=== PATIENT | female | born 1960 | race Hispanic/Latino ===

== ENCOUNTER 2018-12-01 12:20 | Emergency (ER) | payer BC, OTHER ==
[2018-12-03] MEDS ORDERED: PRAV20TA4 PO (16:19)
[2018-12-03] MEDS ORDERED: METO25TA6 PO (16:19)
[2018-12-03] MEDS ORDERED: LISI40TA4 PO (16:19)
== END 2018-12-01 13:44 | disposition home or self-care (01) ==
LOC: EDH 12:20
DX: S82.842A Displaced bimalleolar fracture of left lower leg, initial encounter for closed fracture (principal); S80.212A Abrasion, left knee, initial encounter; I10 Essential (primary) hypertension; E78.5 Hyperlipidemia, unspecified; X50.1XXA Overexertion from prolonged static or awkward postures, initial encounter; Y93.89 Activity, other specified; Y92.488 Other paved roadways as the place of occurrence of the external cause; Y99.8 Other external cause status
CPT/HCPCS: 29515; 73610

== ENCOUNTER 2018-12-04 09:53 | Observation (INO) | payer BC ==
[2018-12-03 15:56] VITALS: BP 131/80
[2018-12-03 15:57] LABS: BASOPHILS % (AUTO) 0.8 % (0.0-5.0); EOSINOPHILS % (AUTO) 2.3 % (0.0-8.0); HEMATOCRIT 40.1 % (36-48); LYMPHOCYTES % (AUTO) 35.3 % (21.0-51.0); MEAN CORPUSCULAR HGB CONC 33.9 g/dL (32.0-36.0); MEAN CORPUSCULAR VOLUME 85.6 fL (79-99); MONOCYTES % (AUTO) 5.8 % (3.0-13.0); NEUTROPHILS % (AUTO) 55.8 % (40.0-77.0); PLATELET COUNT (AUTO) 225 K/uL (130-400); RED BLOOD CELL COUNT(AUTO) 4.68 MIL/uL (4.00-5.50); RED CELL DISTRIBUTION WIDTH 13.1 % (11.0-15.5); WHITE BLOOD COUNT (AUTO) 9.1 K/uL (4.8-10.8)
[2018-12-03 16:15] LABS: CREATININE 0.8 mg/dL (0.5-1.5); POTASSIUM 4.1 mmol/L (3.5-5.1)
[2018-12-04] VITALS (21 sets, daily range): BP systolic 115–145; BP diastolic 60–90
[~2018-12-04] VITALS: Ht 157.5 cm; Wt 81.6 kg
[2018-12-04] MEDS: CEFAZOLIN SODIUM 1 GM VIAL IVP SCH ×3 (06:00→21:40)
[~2018-12-04 09:53] MED LIST: LISI40TA4 PO; METO25TA6 PO; PRAV20TA4 PO
[2018-12-04] MEDS ORDERED: LACTATED RINGERS 1000ML 1,000 ML IV ONE (10:45)
[2018-12-04] MEDS ORDERED: GLYCOPYRROLATE 1 MG/5 ML SYRINGE ONE (13:31)
[2018-12-04] MEDS ORDERED: SUCCINYLCHOLINE 200MG/10ML SYR ONE (13:31)
[2018-12-04] MEDS ORDERED: MIDAZOLAM HCL 1 MG/ML 2ML VIAL ONE (13:31)
[2018-12-04] MEDS ORDERED: DEXAMETHASONE SOD PHOSPHATE 10MG/ML 1ML VIAL ONE (13:31)
[2018-12-04] MEDS ORDERED: LIDOCAINE PF 2% 5ML ABBOJECT ONE (13:31)
[2018-12-04] MEDS ORDERED: ONDANSETRON HCL 4 MG/2 ML VIAL ONE (13:32)
[2018-12-04] MEDS ORDERED: PROPOFOL 10 MG/ML 20ML VIAL IV ONE (13:32)
[2018-12-04] MEDS ORDERED: ROCURONIUM 10MG/1ML SYR 10 MG/ML ML ONE (13:32)
[2018-12-04] MEDS ORDERED: NEOSTIGMINE 5MG/5ML SYR IV ONE (13:32)
[2018-12-04] MEDS ORDERED: FENTANYL CITRATE PF 50 MCG/1 ML 2ML VIAL ONE ×2 (13:33→15:48)
[2018-12-04] MEDS ORDERED: ROPIVACAINE 0.5% 5MG/ML 30ML IJ ONE (13:37)
[2018-12-04] MEDS ORDERED: CEFAZOLIN SODIUM 1 GM VIAL ONE (14:13)
[2018-12-04] MEDS ORDERED: EPHEDRINE SULFATE 50 MG/ML AMPULE ONE (15:51)
[2018-12-04] MEDS: SODIUM CHLORIDE 0.9% 1000ML 1,000 ML IV SCH (16:51)
[2018-12-04] MEDS ORDERED: DIPHENHYDRAMINE HCL 25 MG CAPSULE PO PRN (17:00)
[2018-12-04] MEDS ORDERED: FERROUS FUMARATE 324 MG TABLET PO PRN (17:00)
[2018-12-04] MEDS ORDERED: DiphenhydrAMINE HCL 50 MG/ML VIAL IVP PRN (17:00)
[2018-12-04] MEDS ORDERED: HYDROCODONE/ACETAMINOPHEN 5/325 MG TAB PO PRN ×2 (17:00)
[2018-12-04] MEDS ORDERED: PROMETHAZINE HCL 25 MG/ML 1ML AMPULE IM PRN (17:00)
[2018-12-04] MEDS ORDERED: LIDOCAINE HCL-MPF 1% 2ML VIAL IVP PRN (17:00)
[2018-12-04] MEDS ORDERED: KETOROLAC TROMETHAMINE 15MG/ML IV PRN (17:00)
[2018-12-04] MEDS: ACETAMINOPHEN EXTRA STRENGTH 500 MG TABLET PO SCH (17:00)
[2018-12-04] MEDS ORDERED: POTASSIUM CHLORIDE 20MEQ/100ML 100 ML IV PRN ×2 (17:00→17:45)
[2018-12-04] MEDS ORDERED: POTASSIUM CHLORIDE 10% ELIXIR 20 MEQ/15 ML UDCUP PO PRN (17:00)
[2018-12-04] MEDS ORDERED: TEMAZEPAM 15 MG CAPSULE PO PRN (17:00)
[2018-12-04] MEDS ORDERED: POTASSIUM CHLORIDE 20 MEQ ERTAB PO PRN (17:00)
[2018-12-04] MEDS ORDERED: CALCIUM CARBONATE 500 MG TABLET PO PRN (17:00)
--- NOTE | 2018-12-04 19:35 | NUR ---
ALLERGY TO POTASSIUM AND DENTAL ANESTHESIA PATIENT DENIES HX OF ALLERGY TO POTASSIUM AND DENTAL ANESTHESIA. PATIENT STATES SHE SAW ALLERGY LISTED AT MD'S OFFICE AND FORGOT TO INFORM THEM ALLERGY IS NOT TRUE AND REPORTS HAVING NO MEMORY OF BEING ALLERGIC TO POTASSIUM OR DENTAL ANESTHESIA.
[2018-12-04] MEDS ORDERED: PHARMACY COMMUNICATION MISC SCH (19:45)
[2018-12-04] MEDS: METOPROLOL TARTRATE 25 MG TAB PO SCH (21:00)
[2018-12-04] MEDS ORDERED: ATORVASTATIN CALCIUM 10 MG TABLET PO SCH (21:00)
[2018-12-04] MEDS: FAMOTIDINE 20MG TAB 20 MG TAB PO SCH (21:40)
[2018-12-05] MEDS: ACETAMINOPHEN EXTRA STRENGTH 500 MG TABLET PO SCH ×2 (01:12→08:31)
[2018-12-05 03:45] VITALS: BP 120/69
[2018-12-05] MEDS: SODIUM CHLORIDE 0.9% 1000ML 1,000 ML IV SCH (04:18)
[2018-12-05] MEDS: CEFAZOLIN SODIUM 1 GM VIAL IVP SCH (04:18)
[2018-12-05] MEDS ORDERED: ASPI-1181 PO (04:28)
[2018-12-05 08:00] VITALS: BP 139/86
[2018-12-05] MEDS: FAMOTIDINE 20MG TAB 20 MG TAB PO SCH (08:26)
[2018-12-05] MEDS: METOPROLOL TARTRATE 25 MG TAB PO SCH (08:26)
[2018-12-05] MEDS ORDERED: ENOXAPARIN SODIUM 40 MG/0.4 ML SYRINGE SQ SCH (09:00)
[2018-12-05] MEDS ORDERED: LISINOPRIL 40 MG TABLET PO SCH (09:00)
[2018-12-05] MEDS ORDERED: POLYETHYLENE GLYCOL 3350 17 GM POWD.PACK PO SCH (09:00)
[2018-12-05] MEDS ORDERED: ASPI-1012 PO (10:01)
[2018-12-05] MEDS ORDERED: TYL3 PO (10:01)
[2018-12-05 11:56] VITALS: BP 121/72
--- NOTE | 2018-12-05 12:16 | NUR ---
D/C PLAN cm spoke to pt regarding d/c planning. Pt lives with spouse. States spouse assists in care as needed. Plan to home. Pt has been ambulating with crutches. Pt requesting walker. CM spoke to Dr. Vazquez and obtained order. CM explained to pt that benefits may not be able to be verified today so out of pocket cost cannot be determined at this time. Pt verbalized understanding and consented to referral. CM explained that DME may not be delivered over the weekend. States she can borrow walker for now and uses crutches. CM offered choices and obtained consent for [facility]ME. CM faxed referral and will f/u. CM also notified Matt with [facility]ME of referral and d/c today. Nursing updated. No other questions or concerns verbalized. Addendum: 12/05/18 at 1229 by BHAVANI HENRY Amended: Links added.
--- NOTE | 2018-12-05 14:44 | NUR ---
Discharge teaching completed in the room with pt and at side. Emphasis on dx, post-op instructions including Dr. Vazquez' orders for cast care, activity, as well as s/s to monitor for and when to seek emergency care vs dial 911. Pt is to follow up with Dr. Vazquez on 12/14, but understands she will need to call on next business day to schedule a time. Written rx for asa and tylenol #3 given to pt. Discussed purpose, route, frequency, and duration of treatment, as well as side effects and adverse effects. PIV removed, tip intact. Dressed with sterile 2x2 and band aid after hemostasis. Pt wheeled to [facility] for transport home via private car. Pt in stable condition at time of discharge. Pt accompanied by .
== END 2018-12-05 14:20 | disposition home or self-care (01) ==
LOC: DAH 09:53 → 4AH 09:54 → DAH 09:54
PROVIDERS: ADMIT Orthopaedic Surgery; ATTEND Orthopaedic Surgery
DX: S82.842A Displaced bimalleolar fracture of left lower leg, initial encounter for closed fracture (principal); X50.1XXA Overexertion from prolonged static or awkward postures, initial encounter; Y93.89 Activity, other specified; Y92.89 Other specified places as the place of occurrence of the external cause; Y99.8 Other external cause status
CPT/HCPCS: 27814; 36415; 73610; 80048; 85025; 96372; 96374; 96375; 96376; 97116 ×2; 97161; A4218; A4649 ×3; A4930 ×2; A6223; C1713 ×6; C1776; G0378 ×28; G8978; G8979; G8980; G8981; G8982; G8983; J0330; J0690 ×4; J1100; J1650; J1885; J2001; J2250; J2405; J2704; J2710; J2795; J3010 ×2; J3490 ×2; J7030; J7120 ×2; Q4051

== ENCOUNTER 2023-11-05 16:09 | Observation (INO) | payer BC, MEDICARE ==
[~2023-11-05] VITALS: Ht 157.5 cm; Wt 86.6 kg
[~2023-11-05 16:09] MED LIST changes: +ASPI-1012 PO; -LISI40TA4 PO; +LISI40TA9 PO; +TYL3 PO
[2023-11-05 17:00] VITALS: PULSE 74; RESP 21
[2023-11-05 17:10] VITALS: BP 94/39; PULSE 72; RESP 26
[2023-11-05 17:10] LABS: HEMATOCRIT 39.4 % (36-48); MEAN CORPUSCULAR HEMOGLOBIN 28.2 pg (27.0-33.0); MEAN CORPUSCULAR HGB CONC 33.2 g/dL (32.0-36.0); MEAN CORPUSCULAR VOLUME 84.7 fL (79-99); RED BLOOD CELL COUNT(AUTO) 4.65 MIL/uL (4.00-5.50); RED CELL DISTRIBUTION WIDTH 13.3 % (11.0-15.5); WHITE BLOOD COUNT (AUTO) 9.4 K/uL (4.8-10.8)
[2023-11-05 17:15] VITALS: PULSE 85; RESP 40
[2023-11-05 17:40] LABS: ALBUMIN 3.7 g/dL (3.5-5.0); BILIRUBIN,TOTAL 0.6 mg/dL (0.2-1.0); CREATININE 0.7 mg/dL (0.5-1.0); MAGNESIUM 1.9 mg/dL (1.80-2.40); POTASSIUM 4.1 mmol/L (3.5-5.1); THYROID STIMULATING HORMONE 2.14 uIU/mL (0.36-3.74); TOTAL PROTEIN, SERUM 7.8 g/dL (6.0-8.3)
[2023-11-05 17:56] VITALS: O2SAT 95
[2023-11-05] MEDS ORDERED: DOCUSATE SODIUM 100 MG CAP PO PRN (18:00)
[2023-11-05] MEDS ORDERED: LACTULOSE 20 GM/30 ML UDCUP PO PRN (18:00)
[2023-11-05] MEDS ORDERED: HYDRALAZINE 20MG/ML VIAL IV PRN (18:00)
[2023-11-05] MEDS ORDERED: ALBUTEROL 0.083% 2.5 MG/3 ML INH IH PRN (18:00)
[2023-11-05] MEDS ORDERED: ACETAMINOPHEN 650 MG SUPPOSITORY RC PRN (18:00)
[2023-11-05] MEDS ORDERED: TEMAZEPAM 15 MG CAPSULE PO PRN (18:00)
[2023-11-05] MEDS ORDERED: IPRATROPIUM 0.5 MG/2.5 ML INH IH PRN (18:00)
[2023-11-05] MEDS ORDERED: ACETAMINOPHEN 325 MG TAB PO PRN (18:00)
[2023-11-05] MEDS ORDERED: ONDANSETRON 4MG INJ IVP PRN (18:00)
[2023-11-05] MEDS: INSULIN HUMULIN R 100 UNIT/ML 3ML SQ SCH (21:00)
[2023-11-05 21:05] VITALS: BP 125/71; PULSE 74; RESP 18
[2023-11-05 21:10] VITALS: O2SAT 97
[2023-11-06] VITALS (9 sets, daily range): BP systolic 123–149; BP diastolic 63–88; PULSE 53–73; RESP 16–18; O2SAT 97
[2023-11-06] MEDS ORDERED: NITROGLYCERIN 0.4 MG SL TAB SL PRN
[2023-11-06 04:53] LABS: BASOPHILS # (AUTO) 0.03 K/uL (0.00-0.20); BASOPHILS % (AUTO) 0.3 % (0.0-5.0); EOSINOPHILS # (AUTO) 0.19 K/uL (0.00-0.70); EOSINOPHILS % (AUTO) 2.2 % (0.0-8.0); HEMATOCRIT 37.1 % (36-48); IMMATURE GRANULOCYTE ABSOLUTE 0.03 K/uL (0-1); LYMPHOCYTES # (AUTO) 3.8 K/uL (1.0-4.8); LYMPHOCYTES % (AUTO) 43.7 % (21.0-51.0); MEAN CORPUSCULAR HEMOGLOBIN 28.9 pg (27.0-33.0); MEAN CORPUSCULAR HGB CONC 33.2 g/dL (32.0-36.0); MEAN CORPUSCULAR VOLUME 87.3 fL (79-99); MONOCYTES # (AUTO) 0.7 K/uL (0.1-1.0); MONOCYTES % (AUTO) 7.6 % (3.0-13.0); NEUTROPHILS % (AUTO) 45.9 % (40.0-77.0); PLATELET COUNT (AUTO) 199 K/uL (130-400); RED BLOOD CELL COUNT(AUTO) 4.25 MIL/uL (4.00-5.50); RED CELL DISTRIBUTION WIDTH 13.4 % (11.0-15.5); WHITE BLOOD COUNT (AUTO) 8.8 K/uL (4.8-10.8)
[2023-11-06 05:32] LABS: CREATININE 0.8 mg/dL (0.5-1.0); MAGNESIUM 1.9 mg/dL (1.80-2.40); PHOSPHORUS 4.5 mg/dL (2.5-4.9); POTASSIUM 4.2 mmol/L (3.5-5.1)
[2023-11-06] MEDS: HEPARIN 5,000 UNIT VIAL SQ SCH (09:19)
[2023-11-06] MEDS: METOPROLOL TARTRATE 25 MG TAB PO SCH ×2 (09:19→20:55)
[2023-11-06] MEDS: FAMOTIDINE 20MG TAB PO SCH (09:20)
[2023-11-06] MEDS: ASPIRIN 81MG CHEW TAB PO SCH (09:20)
[2023-11-06] MEDS: REGADENOSON 0.4 MG/5 ML PF SYG IVP SCH (10:30)
[2023-11-06 13:55] LABS: HEMOGLOBIN A1C 6.7 % (4.0-6.0)
[2023-11-06] MEDS ORDERED: POTASSIUM CHLORIDE 10% ELIXIR 20 MEQ/15 ML UDCUP PO PRN (14:00)
[2023-11-06] MEDS ORDERED: DEXTROSE 50%-WATER 50 ML DISP.SYRIN IV PRN (14:00)
[2023-11-06] MEDS ORDERED: POTASSIUM CHLORIDE 20MEQ/100ML 100 ML IV PRN ×2 (14:00)
[2023-11-06] MEDS ORDERED: GLUCAGON 1MG KIT 1 MG ML IM PRN (14:00)
[2023-11-06] MEDS ORDERED: KCL 20 MEQ ERTAB PO PRN (14:00)
[2023-11-06] MEDS ORDERED: MAGNESIUM 2GM PREMIX 50ML 50 ML IV PRN (14:00)
[2023-11-06] MEDS: LISINOPRIL 40 MG TABLET PO SCH (15:58)
[2023-11-06] MEDS ORDERED: DILT-36 PO (19:42)
[2023-11-06] MEDS ORDERED: APIX5TAB PO (19:42)
[2023-11-06] MEDS ORDERED: METO25TA6 PO (19:42)
[2023-11-06] MEDS: ATORVASTATIN 40 MG TABLET PO SCH (20:54)
[2023-11-06] MEDS: ENOXAPARIN SODIUM 100 MG/1 ML SQ SCH (20:55)
[2023-11-07 04:24] VITALS: BP 140/92; PULSE 54; RESP 18
[2023-11-07 05:06] LABS: BASOPHILS # (AUTO) 0.03 K/uL (0.00-0.20); BASOPHILS % (AUTO) 0.3 % (0.0-5.0); EOSINOPHILS # (AUTO) 0.14 K/uL (0.00-0.70); EOSINOPHILS % (AUTO) 1.5 % (0.0-8.0); HEMATOCRIT 38.7 % (36-48); IMMATURE GRANULOCYTE ABSOLUTE 0.03 K/uL (0-1); LYMPHOCYTES # (AUTO) 3.9 K/uL (1.0-4.8); LYMPHOCYTES % (AUTO) 42.2 % (21.0-51.0); MEAN CORPUSCULAR HEMOGLOBIN 28.2 pg (27.0-33.0); MEAN CORPUSCULAR HGB CONC 32.8 g/dL (32.0-36.0); MONOCYTES # (AUTO) 0.6 K/uL (0.1-1.0); MONOCYTES % (AUTO) 6.9 % (3.0-13.0); NEUTROPHILS # (AUTO) 4.5 K/uL (1.8-7.7); NEUTROPHILS % (AUTO) 48.8 % (40.0-77.0); PLATELET COUNT (AUTO) 217 K/uL (130-400); RED CELL DISTRIBUTION WIDTH 13.6 % (11.0-15.5); WHITE BLOOD COUNT (AUTO) 9.2 K/uL (4.8-10.8)
[2023-11-07 05:37] LABS: CREATININE 0.7 mg/dL (0.5-1.0); POTASSIUM 4.3 mmol/L (3.5-5.1)
[2023-11-07 07:00] VITALS: O2SAT 97
[2023-11-07] MEDS: APIXABAN 5 MG TABLET PO SCH (08:44)
== END 2023-11-07 08:25 | disposition home or self-care (01) ==
LOC: EDH 16:09 → 2BH 16:10 → INTOOBSV 16:10 → 2AH 20:24
PROVIDERS: ADMIT Internal Medicine Critical Care Medicine; ATTEND Internal Medicine Critical Care Medicine
DX: I48.0 Paroxysmal atrial fibrillation (principal); E11.65 Type 2 diabetes mellitus with hyperglycemia; E66.9 Obesity, unspecified; E78.00 Pure hypercholesterolemia, unspecified; G47.30 Sleep apnea, unspecified; M19.90 Unspecified osteoarthritis, unspecified site; I10 Essential (primary) hypertension; Z68.35 Body mass index [BMI] 35.0-35.9, adult; Z79.01 Long term (current) use of anticoagulants; Z79.82 Long term (current) use of aspirin; Z79.899 Other long term (current) drug therapy
CPT/HCPCS: 84443; 83735 ×2; 84484 ×2; 80061; 80053; 83880; 85027; 82948 ×5; 84439; 84481; 36415 ×3; 71045; 93005 ×2; 96372; 83036; 84100; 80048 ×2; 85025 ×2; 85378; 93017; 78452; 93306; 93356; 76376; 96374; G0378 ×34; J1650; J1644; J2785; A9500 ×2

== ENCOUNTER → 2023-12-26 | Outpatient (CLI) | payer OTHER ==
[~2023-12-26] MED LIST changes: +APIX5TAB PO; -ASPI-1012 PO; +DILT-36 PO
== END ==
LOC: RAH 12:54
PROVIDERS: ATTEND Internal Medicine Cardiovascular Disease
DX: Z13.6 Encounter for screening for cardiovascular disorders (principal)
CPT/HCPCS: 75571